=== PATIENT | female | born 1985 | race Caucasian/White ===

== ENCOUNTER 2016-07-04 20:57 | Emergency (ER) | payer BC ==
[2016-07-04] MEDS ORDERED: DIPHENHYDRAMINE 50 MG/ML VIAL ONE ×2 (21:21→23:39)
[2016-07-04] MEDS ORDERED: METHYLPRED SOD SUCC 125 MG/2 ML VIAL ONE (21:22)
[2016-07-04] MEDS ORDERED: EPINEPHrine 1 MG/ML AMP ONE (21:22)
[2016-07-04] MEDS ORDERED: FAMOTIDINE 20 MG INJ ONE (21:22)
[2016-07-04] MEDS ORDERED: EPINEPHrine 1 MG/10 ML SYR IV ONE (21:25)
== END 2016-07-05 02:59 | disposition home or self-care (01) ==
LOC: ER 20:57
DX: T78.3XXA Angioneurotic edema, initial encounter (principal)
CPT/HCPCS: 96372; 96374; 96375; 96376